=== PATIENT | male | born 1970 | race Caucasian/White ===

== ENCOUNTER 2020-09-15 11:33 | Inpatient (IN) | payer OTHER ==
[2020-09-15] MEDS ORDERED: PNEUMOC 13-VAL CONJ-DIP CRM/PF 0.5 ML DISP.SYRIN IM ONE (11:57)
[2020-09-15] MEDS ORDERED: MAGNESIUM HYDROX 2400MG/30ML ORAL SUSPENSION 30 ML CUP PO PRN (12:20)
[2020-09-15] MEDS ORDERED: LOPERAMIDE HCL 2 MG CAPSULE PO PRN (12:20)
[2020-09-15] MEDS ORDERED: MAG HYDROX/AL HYDROX/SIMETH 30 ML UNIT-DOSE CUP PO PRN (12:20)
[2020-09-15] MEDS ORDERED: guaiFENesin 200 MG/10 ML 10 ML UNIT-DOSE CUPS PO PRN (12:20)
[2020-09-15] MEDS ORDERED: P-EPHED 60MG/TRIPROLIDI 2.5MG TABLET PO PRN (12:20)
[2020-09-15] MEDS ORDERED: MAGNESIUM CITRATE 300 ML BOTTLE PO PRN (12:20)
[2020-09-15] MEDS ORDERED: NICOTINE POLACRILEX 2 MG GUM BUC PRN (12:20)
[2020-09-15] MEDS: MELATONIN 5 MG TABLETS PO SCH (21:17)
[2020-09-15] MEDS: THIAMINE HCL 100 MG TABLET (FP) PO SCH (21:17)
[2020-09-16] MEDS ORDERED: BENZOCAINE 20 % GEL TUBE MM PRN (06:50)
[2020-09-16] MEDS: IBUPROFEN 400 MG TABLET (FP) PO PRN ×2 (07:11→18:06)
[2020-09-16] MEDS ORDERED: TAMSULOSIN HCL 0.4 MG CAP PO SCH (08:30)
[2020-09-16] MEDS: PRENATAL VITAMINS W/ FOLIC ACID TABLET (FP) PO SCH (10:24)
[2020-09-16] MEDS: TAMSULOSIN HCL 0.4 MG CAP PO SCH (10:24)
[2020-09-16] MEDS: NICOTINE 7 MG/24 HOURS TOPICAL PATCH TD SCH (10:24)
[2020-09-16] MEDS ORDERED: WITCH HAZEL 50% (TUCKS) 40 PAD/JAR PAD TP PRN (10:49)
[2020-09-16] MEDS ORDERED: PNEUMOCOCCAL 23 VACCINE 0.5 ML VIAL IM ONE (12:00)
[2020-09-16] MEDS ORDERED: FLU VACCINE (FLULAVAL) PF 60 MCG/0.5 ML SYRINGE 2020-2021 IM ONE (12:00)
[2020-09-16 14:43] LABS: POTASSIUM 4.1 mmol/L (3.5-5.1)
[2020-09-16 14:46] LABS: ALBUMIN 3.7 g/dl (3.4-5.0); CALCIUM 10.2 mg/dL (8.5-10.1)
[2020-09-16 14:47] LABS: BLOOD UREA NITROGEN 15.6 mg/dL (7-18)
[2020-09-16 14:50] LABS: CREATININE 0.6 mg/dL (0.55-1.3)
[2020-09-16 14:51] LABS: BILIRUBIN,TOTAL 0.9 mg/dL (0.2-1); TOT PROT 7.3 g/dl (6.4-8.2)
[2020-09-16] MEDS: THIAMINE HCL 100 MG TABLET (FP) PO SCH (21:17)
[2020-09-16] MEDS: MELATONIN 5 MG TABLETS PO SCH (21:17)
[2020-09-16] MEDS ORDERED: PRAMOXINE HCL/MINERAL OIL/ZNOX 30 GM TUBE RC SCH (22:00)
[2020-09-17] MEDS: IBUPROFEN 400 MG TABLET (FP) PO PRN ×2 (06:09→14:19)
[2020-09-17] MEDS: TAMSULOSIN HCL 0.4 MG CAP PO SCH (10:16)
[2020-09-17] MEDS: PRENATAL VITAMINS W/ FOLIC ACID TABLET (FP) PO SCH (10:16)
[2020-09-17] MEDS: NICOTINE 7 MG/24 HOURS TOPICAL PATCH TD SCH (10:16)
[2020-09-17] MEDS: THIAMINE HCL 100 MG TABLET (FP) PO SCH (21:13)
[2020-09-17] MEDS: MELATONIN 5 MG TABLETS PO SCH (21:14)
[2020-09-18] MEDS: IBUPROFEN 400 MG TABLET (FP) PO PRN ×2 (08:42→19:54)
[2020-09-18] MEDS: PRENATAL VITAMINS W/ FOLIC ACID TABLET (FP) PO SCH (10:24)
[2020-09-18] MEDS: TAMSULOSIN HCL 0.4 MG CAP PO SCH (10:24)
[2020-09-18] MEDS: NICOTINE 7 MG/24 HOURS TOPICAL PATCH TD SCH (10:24)
[2020-09-18] MEDS: THIAMINE HCL 100 MG TABLET (FP) PO SCH (21:20)
[2020-09-18] MEDS: MELATONIN 5 MG TABLETS PO SCH (21:20)
[2020-09-19] MEDS: IBUPROFEN 400 MG TABLET (FP) PO PRN (08:38)
[2020-09-19] MEDS: NICOTINE 7 MG/24 HOURS TOPICAL PATCH TD SCH (09:13)
[2020-09-19] MEDS: PRENATAL VITAMINS W/ FOLIC ACID TABLET (FP) PO SCH (09:13)
[2020-09-19] MEDS: TAMSULOSIN HCL 0.4 MG CAP PO SCH (09:13)
[2020-09-19] MEDS: MELATONIN 5 MG TABLETS PO SCH (21:14)
[2020-09-19] MEDS: THIAMINE HCL 100 MG TABLET (FP) PO SCH (21:14)
[2020-09-20] MEDS: TAMSULOSIN HCL 0.4 MG CAP PO SCH (09:26)
[2020-09-20] MEDS: NICOTINE 7 MG/24 HOURS TOPICAL PATCH TD SCH (09:26)
[2020-09-20] MEDS: PRENATAL VITAMINS W/ FOLIC ACID TABLET (FP) PO SCH (09:26)
[2020-09-20] MEDS: THIAMINE HCL 100 MG TABLET (FP) PO SCH (21:16)
[2020-09-20] MEDS: MELATONIN 5 MG TABLETS PO SCH (21:16)
[2020-09-20] MEDS: IBUPROFEN 400 MG TABLET (FP) PO PRN (21:17)
[2020-09-21] MEDS: PRENATAL VITAMINS W/ FOLIC ACID TABLET (FP) PO SCH (10:01)
[2020-09-21] MEDS: TAMSULOSIN HCL 0.4 MG CAP PO SCH (10:01)
[2020-09-21] MEDS: NICOTINE 7 MG/24 HOURS TOPICAL PATCH TD SCH (10:02)
[2020-09-21 10:14] LABS: POTASSIUM 4.7 mmol/L (3.5-5.1)
[2020-09-21 10:20] LABS: ALBUMIN 3.5 g/dl (3.4-5.0); BLOOD UREA NITROGEN 18.3 mg/dL (7-18)
[2020-09-21 10:23] LABS: BILIRUBIN,TOTAL 0.4 mg/dL (0.2-1); TOT PROT 7.3 g/dl (6.4-8.2)
[2020-09-21 10:24] LABS: CALCIUM 9.8 mg/dL (8.5-10.1); CREATININE 0.5 mg/dL (0.55-1.3)
[2020-09-21] MEDS ORDERED: COLLOIDAL OATMEAL 1 BAR EACH TP PRN (11:58)
[2020-09-21] MEDS: IBUPROFEN 400 MG TABLET (FP) PO PRN (17:53)
[2020-09-21] MEDS: THIAMINE HCL 100 MG TABLET (FP) PO SCH (21:24)
[2020-09-21] MEDS: MELATONIN 5 MG TABLETS PO SCH (21:25)
[2020-09-22] MEDS: PRENATAL VITAMINS W/ FOLIC ACID TABLET (FP) PO SCH (10:32)
[2020-09-22] MEDS: NICOTINE 7 MG/24 HOURS TOPICAL PATCH TD SCH (10:33)
[2020-09-22] MEDS: TAMSULOSIN HCL 0.4 MG CAP PO SCH (10:33)
[2020-09-22] MEDS: THIAMINE HCL 100 MG TABLET (FP) PO SCH (21:24)
[2020-09-22] MEDS: MELATONIN 5 MG TABLETS PO SCH (21:24)
[2020-09-23] MEDS: PRENATAL VITAMINS W/ FOLIC ACID TABLET (FP) PO SCH (09:58)
[2020-09-23] MEDS: TAMSULOSIN HCL 0.4 MG CAP PO SCH (09:58)
[2020-09-23] MEDS: NICOTINE 7 MG/24 HOURS TOPICAL PATCH TD SCH (09:58)
[2020-09-23] MEDS: MELATONIN 5 MG TABLETS PO SCH (21:25)
[2020-09-23] MEDS: THIAMINE HCL 100 MG TABLET (FP) PO SCH (21:25)
[2020-09-23] MEDS: IBUPROFEN 400 MG TABLET (FP) PO PRN (21:25)
[2020-09-24] MEDS: PRENATAL VITAMINS W/ FOLIC ACID TABLET (FP) PO SCH (09:53)
[2020-09-24] MEDS: IBUPROFEN 400 MG TABLET (FP) PO PRN (09:53)
[2020-09-24] MEDS: NICOTINE 7 MG/24 HOURS TOPICAL PATCH TD SCH (09:53)
[2020-09-24] MEDS: TAMSULOSIN HCL 0.4 MG CAP PO SCH (09:53)
[2020-09-24] MEDS: THIAMINE HCL 100 MG TABLET (FP) PO SCH (21:20)
[2020-09-24] MEDS: MELATONIN 5 MG TABLETS PO SCH (21:20)
[2020-09-25] MEDS: PRENATAL VITAMINS W/ FOLIC ACID TABLET (FP) PO SCH (10:27)
[2020-09-25] MEDS: TAMSULOSIN HCL 0.4 MG CAP PO SCH (10:28)
[2020-09-25] MEDS: NICOTINE 7 MG/24 HOURS TOPICAL PATCH TD SCH (10:28)
[2020-09-25] MEDS: THIAMINE HCL 100 MG TABLET (FP) PO SCH (21:20)
[2020-09-25] MEDS: MELATONIN 5 MG TABLETS PO SCH (21:20)
[2020-09-26] MEDS: IBUPROFEN 400 MG TABLET (FP) PO PRN (07:43)
[2020-09-26] MEDS: TAMSULOSIN HCL 0.4 MG CAP PO SCH (10:15)
[2020-09-26] MEDS: PRENATAL VITAMINS W/ FOLIC ACID TABLET (FP) PO SCH (10:15)
[2020-09-26] MEDS: NICOTINE 7 MG/24 HOURS TOPICAL PATCH TD SCH (10:16)
[2020-09-26] MEDS: THIAMINE HCL 100 MG TABLET (FP) PO SCH (21:30)
[2020-09-26] MEDS: MELATONIN 5 MG TABLETS PO SCH (21:30)
[2020-09-27] MEDS: PRENATAL VITAMINS W/ FOLIC ACID TABLET (FP) PO SCH (09:53)
[2020-09-27] MEDS: IBUPROFEN 400 MG TABLET (FP) PO PRN ×2 (09:53→21:33)
[2020-09-27] MEDS: TAMSULOSIN HCL 0.4 MG CAP PO SCH (09:54)
[2020-09-27] MEDS: NICOTINE 7 MG/24 HOURS TOPICAL PATCH TD SCH (09:54)
[2020-09-27] MEDS: MELATONIN 5 MG TABLETS PO SCH (21:32)
[2020-09-27] MEDS: THIAMINE HCL 100 MG TABLET (FP) PO SCH (21:32)
[2020-09-28] MEDS: TAMSULOSIN HCL 0.4 MG CAP PO SCH (09:35)
[2020-09-28] MEDS: PRENATAL VITAMINS W/ FOLIC ACID TABLET (FP) PO SCH (09:36)
[2020-09-28] MEDS: NICOTINE 7 MG/24 HOURS TOPICAL PATCH TD SCH (09:36)
[2020-09-28] MEDS: THIAMINE HCL 100 MG TABLET (FP) PO SCH (21:29)
[2020-09-28] MEDS: IBUPROFEN 400 MG TABLET (FP) PO PRN (21:30)
[2020-09-28] MEDS: MELATONIN 5 MG TABLETS PO SCH (21:33)
[2020-09-29 07:03] VITALS: BP 157/87; PULSE 97; TEMP 98.1
== END 2020-09-29 10:00 | disposition home or self-care (01) | DRG 772 ==
LOC: YASAS 11:33 → Y3W 11:34
PROVIDERS: ADMIT Allergy & Immunology; ATTEND Allergy & Immunology
PROC: HZ42ZZZ Group Counseling for Substance Abuse Treatment, Cognitive-Behavioral (ICD-10-PCS; principal; 2020-09-15)
DX: F10.20 Alcohol dependence, uncomplicated (principal); F17.210 Nicotine dependence, cigarettes, uncomplicated; K76.0 Fatty (change of) liver, not elsewhere classified; N40.0 Benign prostatic hyperplasia without lower urinary tract symptoms; R63.4 Abnormal weight loss; Z68.1 Body mass index [BMI] 19.9 or less, adult
CPT/HCPCS: 36415; 80053; 90732; G0008; G0009; Q2036